=== PATIENT | female | born 1975 | race Caucasian/White ===

== ENCOUNTER 2021-03-08 14:57 | Observation (INO) ==
[2021-03-08] MEDS ORDERED: 0.9 % Sodium Chloride 1,000 ML IVC ONE ×2 (15:15→15:54)
[2021-03-08] MEDS ORDERED: Aspirin 81 MG TAB.CHEW PO STA (15:26)
[2021-03-08 15:43] LABS: Basophils # 0.1 K/mcL (0.0-0.2); Basophils % 0.6 %; Eosinophils # 0.2 K/mcL (0.0-0.6); Hematocrit 47.7 % (35.3-44.9); Hemoglobin 16.3 g/dL (11.5-15.4); Immature Granulocytes % 0.3 % (0-4); Lymphocytes # 5.5 K/mcL (0.6-4.6); Lymphocytes % 35.6 %; Mean Corpuscular HGB Conc 34.2 g/dL (31.6-35.5); Mean Corpuscular Hemoglobin 31.6 pg (28.0-33.3); Mean Corpuscular Volume 92.4 fL (83.0-100.0); Mean Platelet Volume 9.7 fL (9.4-12.4); Monocytes % 6.4 %; Neutrophils # 8.7 K/mcL (1.6-8.9); Platelet Count 473 K/mcL (140-400); Red Blood Count 5.16 M/mcL (3.82-4.97); Red Cell Distribution Width 11.9 % (11.5-14.5); Segmented Neutrophils % 56.1 %; White Blood Count 15.5 K/mcL (4.3-11.1)
[2021-03-08 15:47] LABS: VBG Ionized Calcium 1.14 mmol/L (1.15-1.35)
[2021-03-08] MEDS ORDERED: Nitroglycerin 0.4 MG TAB.SUBL SL ONE (15:51)
[2021-03-08] MEDS ORDERED: 0.9 % Sodium Chloride 1,000 ML ONE ×2 (15:51→16:18)
[2021-03-08] MEDS ORDERED: Isovue-370 500 ML BOTTLE IVP ONE ×2 (15:54→16:06)
[2021-03-08] MEDS: Nitroglycerin 0.4 MG TAB.SUBL SL PRN ×2 (15:55→16:03)
[2021-03-08 16:18] LABS: Alanine Aminotransferase 15 Units/L (7-52); Albumin 4.6 g/dL (3.5-5.7); Albumin/Globulin Ratio 1.3 (1.1-2.2); Alkaline Phosphatase 80 Units/L (34-104); Aspartate Amino Transferase 9 Units/L (13-39); BUN/Creatinine Ratio 11 (6-26); Bilirubin,Indirect 0.3 mg/dL (0.0-1.0); Bilirubin,Total 0.3 mg/dL (0.3-1.0); Blood Urea Nitrogen 11 mg/dL (6-20); Carbon Dioxide 17 mEq/L (23-29); Chloride 99 mEq/L (98-107); Creatine Kinase 75 Units/L (30-223); Globulin 3.5 g/dL (2.4-3.5); Glucose 181 mg/dL (70-105); Lipase 30 Units/L (11-82); Magnesium 1.8 mg/dL (1.6-2.6); Osmolality,Calculated 284 (280-300); Phosphorous < 1.0 mg/dL (2.7-4.5); Potassium 3.7 mEq/L (3.5-5.1); Sodium 135 mEq/L (136-145); Total Protein 8.1 g/dL (6.4-8.9); eGFR For African Americans > 60 (> 60); eGFR For Non-African Americans 60 (> 60)
[2021-03-08] MEDS ORDERED: *HR* Ticagrelor 90 MG TABLET ONE (16:18)
[2021-03-08] MEDS ORDERED: *HR* Heparin 5,000 UNIT/ML VIAL ONE (16:18)
[2021-03-08] MEDS ORDERED: Aspirin 81 MG TAB.CHEW ONE (16:18)
[2021-03-08 16:19] LABS: Troponin I < 0.03 ng/mL (< 0.04)
[2021-03-08] MEDS ORDERED: Potassium Phosphate 44 MEQ in 0.9 % Sodium Chloride 250 ML IVPB ONE ×2 (16:25→19:00)
[2021-03-08] MEDS ORDERED: 0.9 % Sodium Chloride 2,000 ML ONE (16:27)
[2021-03-08] MEDS ORDERED: ISOVUE-370 200 ML INFUS..BTL ONE (16:27)
[2021-03-08] MEDS ORDERED: Heparin 1,000 UNITS/500 mL 500 ML ONE (16:27)
[2021-03-08] MEDS ORDERED: *HR* Heparin 10,000 UNIT/10 ML VIAL ONE (16:27)
[2021-03-08] MEDS ORDERED: Nitroglycerin 1,000 MCG/5 ML VIAL IV ONE (16:27)
[2021-03-08 16:36] LABS: Thyroid Stimulating Hormone 0.342 mcIU/mL (0.340-5.600)
[2021-03-08] MEDS ORDERED: *HR* Midazolam HCl 2 MG/2 ML VIAL ONE (16:37)
[2021-03-08] MEDS ORDERED: *HR* FentaNYL (PF) 100 MCG/2 ML VIAL ONE (16:37)
[2021-03-08] MEDS ORDERED: *HR* Metoprolol 5 MG/5 ML VIAL IVP ONE (17:09)
[2021-03-08] MEDS ORDERED: Perflutren Lipid Microsphere 1.3 ML in 0.9 % Sodium Chloride 8.7 ML IVP PRN (17:12)
[2021-03-08 17:44] LABS: Adenovirus Not Detected (Not Detect); Bordetella Pertussis Not Detected (Not Detect); Chlamydophila pneumoniae Not Detected (Not Detect); Coronavirus 229E Not Detected (Not Detect); Coronavirus HKU1 Not Detected (Not Detect); Coronavirus NL63 Not Detected (Not Detect); Coronavirus OC43 Not Detected (Not Detect); Human Metapneumovirus Not Detected (Not Detect); Human Rhinovirus/Enterovirus Not Detected (Not Detect); Influenza A Subtype 2009 H1 Not Detected (Not Detect); Influenza B Not Detected (Not Detect); Mycoplasma pneumoniae Not Detected (Not Detect); Parainfluenza Virus 1 Not Detected (Not Detect); Parainfluenza Virus 2 Not Detected (Not Detect); Parainfluenza Virus 3 Not Detected (Not Detect); Parainfluenza Virus 4 Not Detected (Not Detect); Respiratory Syncytial Virus Not Detected (Not Detect); SARS-CoV-2 Not Detected (Not Detect)
[2021-03-08] MEDS ORDERED: Naloxone 0.4 MG/ML INJ IVP PRN (18:11)
[2021-03-08] MEDS ORDERED: Acetaminophen 325 MG TABLET PO PRN (18:11)
[2021-03-08] MEDS ORDERED: Ondansetron 4 MG/2 ML VIAL IVP PRN (18:11)
[2021-03-08] MEDS ORDERED: 0.9 % Sodium Chloride 1,000 ML IVC SCH (18:15)
[2021-03-08] MEDS: *HR* OxyCODONE Immed Rel 5 MG TABLET PO PRN (22:37)
[2021-03-09 05:03] LABS: Basophils % 0.3 %; Eosinophils # 0.1 K/mcL (0.0-0.6); Eosinophils % 0.9 %; Hematocrit 37.9 % (35.3-44.9); Immature Granulocytes % 0.3 % (0-4); Lymphocytes # 3.5 K/mcL (0.6-4.6); Lymphocytes % 29.7 %; Mean Corpuscular HGB Conc 33.2 g/dL (31.6-35.5); Mean Corpuscular Hemoglobin 31.6 pg (28.0-33.3); Mean Platelet Volume 9.6 fL (9.4-12.4); Monocytes # 0.7 K/mcL (0.0-1.3); Monocytes % 6.1 %; Neutrophils # 7.5 K/mcL (1.6-8.9); Platelet Count 312 K/mcL (140-400); Red Blood Count 3.99 M/mcL (3.82-4.97); Segmented Neutrophils % 62.7 %; White Blood Count 11.9 K/mcL (4.3-11.1)
[2021-03-09 05:05] LABS: Hemoglobin 12.6 g/dL (11.5-15.4)
[2021-03-09 05:21] LABS: Alanine Aminotransferase 11 Units/L (7-52); Albumin 3.4 g/dL (3.5-5.7); Albumin/Globulin Ratio 1.5 (1.1-2.2); Alkaline Phosphatase 51 Units/L (34-104); Aspartate Amino Transferase 7 Units/L (13-39); BUN/Creatinine Ratio 13 (6-26); Bilirubin,Total 0.3 mg/dL (0.3-1.0); Blood Urea Nitrogen 8 mg/dL (6-20); Carbon Dioxide 22 mEq/L (23-29); Chloride 113 mEq/L (98-107); Globulin 2.3 g/dL (2.4-3.5); Glucose 68 mg/dL (70-105); Magnesium 1.8 mg/dL (1.6-2.6); Osmolality,Calculated 289 (280-300); Potassium 3.7 mEq/L (3.5-5.1); Sodium 141 mEq/L (136-145); Total Protein 5.7 g/dL (6.4-8.9); eGFR For African Americans > 60 (> 60); eGFR For Non-African Americans > 60 (> 60)
[2021-03-09 06:03] VITALS: PULSE 76; TEMP 97.9
[2021-03-09 06:03] LABS: Estimated Average Glucose 111 mg/dl; Hemoglobin A1C 5.5 %
[2021-03-09] MEDS: *HR* OxyCODONE Immed Rel 5 MG TABLET PO PRN (09:16)
[2021-03-09 10:32] VITALS: BP 143/88; O2SAT 95
== END 2021-03-09 13:30 | disposition home or self-care (01) ==
LOC: EMEROOARM 14:57 → 2ANU 14:57
PROVIDERS: ADMIT Internal Medicine; ATTEND Internal Medicine